=== PATIENT | female | born 1970 | race Caucasian/White ===

== ENCOUNTER 2017-09-14 16:46 | Inpatient (IN) | payer BC, MEDICAID ==
[2017-09-14] MEDS ORDERED: Ertapenem 1 GM in Sodium Chloride 0.9% 50 ML IV ONE (17:20)
[2017-09-14] MEDS ORDERED: fentaNYL 100 MCG/2 ML SDV IV ONE (18:54)
[2017-09-14] MEDS ORDERED: Midazolam 1 MG/ML 2 ML SDV IV ONE (18:54)
[2017-09-14] MEDS ORDERED: Lactated Ringers 1,000 ML IV ONE (18:54)
[2017-09-14] MEDS ORDERED: Propofol 200 MG/20 ML SDV IV ONE (18:54)
[2017-09-14] MEDS ORDERED: Lidocaine 1% 20 ML MDV INJECT ONE (19:12)
[2017-09-14] MEDS ORDERED: Bupivacaine 0.5% 30 ML SDV INJECT ONE (19:12)
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
[2017-09-14] MEDS ORDERED: Morphine 2 MG/ML Syringe IVPUSH PRN (20:29)
[2017-09-14] MEDS ORDERED: Bimatoprost 0.01% Ophth Soln 5 ML Bottle EYEBOTH SCH (21:00)
[2017-09-15] MEDS: Latanoprost 0.005% Ophth Soln 2.5 ML Bottle EYEBOTH SCH ×2 (00:34→20:28)
[2017-09-15] MEDS: Lactated Ringers 1,000 ML IV SCH ×2 (00:36→08:50)
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
[2017-09-15] MEDS ORDERED: metFORMIN 500 MG Tab.ER PO SCH (08:00)
[2017-09-15] MEDS: Hydrochlorothiazide/Lisinopril 12.5-20 MG Tab PO SCH (08:47)
[2017-09-15] MEDS: Levofloxacin 500 MG Tab PO SCH (08:47)
[2017-09-15] MEDS: metroNIDAZOLE 500 MG Tab PO SCH ×2 (08:47→15:25)
[2017-09-15] MEDS: metFORMIN 500 MG Tab PO SCH ×2 (08:48→18:32)
[2017-09-15] MEDS: Metoprolol Succinate 50 MG Tab.ER PO SCH (08:48)
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
[2017-09-15] MEDS: Sodium Chloride 0.9% 10 ML Syringe FLUSH PRN (14:31)
[2017-09-15] MEDS ORDERED: Bimatoprost 0.01% Ophth Soln 5 ML Bottle EYEBOTH SCH (21:00)
[2017-09-16] MEDS: metroNIDAZOLE 500 MG Tab PO SCH ×4 (01:01→23:42)
[2017-09-16] MEDS: Levofloxacin 500 MG Tab PO SCH (06:44)
[2017-09-16] MEDS: Sodium Chloride 0.9% 10 ML Syringe FLUSH PRN (08:48)
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
[2017-09-16] MEDS: Hydrochlorothiazide/Lisinopril 12.5-20 MG Tab PO SCH (09:13)
[2017-09-16] MEDS: metFORMIN 500 MG Tab PO SCH ×2 (09:13→19:35)
[2017-09-16] MEDS: Metoprolol Succinate 50 MG Tab.ER PO SCH (09:14)
[2017-09-16] MEDS: Latanoprost 0.005% Ophth Soln 2.5 ML Bottle EYEBOTH SCH (20:13)
[2017-09-17] MEDS: metroNIDAZOLE 500 MG Tab PO SCH (06:51)
[2017-09-17] MEDS: Levofloxacin 500 MG Tab PO SCH (06:51)
[2017-09-17] MEDS: metFORMIN 500 MG Tab PO SCH (07:51)
[2017-09-17] MEDS: Metoprolol Succinate 50 MG Tab.ER PO SCH (08:35)
[2017-09-17] MEDS: Hydrochlorothiazide/Lisinopril 12.5-20 MG Tab PO SCH (08:35)
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
== END 2017-09-17 10:30 | disposition home or self-care (01) | DRG 934 ==
LOC: FB.MS 17:15
PROVIDERS: ADMIT Surgery; ATTEND Surgery
PROC: 0Y6T0Z2 Detachment at Right 3rd Toe, Mid, Open Approach (ICD-10-PCS; principal; 2017-09-14)
PROC: 0Y6V0Z2 Detachment at Right 4th Toe, Mid, Open Approach (ICD-10-PCS; 2017-09-14)
DX: T25.331A Burn of third degree of right toe(s) (nail), initial encounter (principal); T31.0 Burns involving less than 10% of body surface; W29.2XXA Contact with other powered household machinery, initial encounter; Y93.9 Activity, unspecified; E11.9 Type 2 diabetes mellitus without complications; F17.200 Nicotine dependence, unspecified, uncomplicated; Z79.84 Long term (current) use of oral hypoglycemic drugs; I10 Essential (primary) hypertension
CPT/HCPCS: 36415; 80048; 81025; 85025; 88305; 88311; 94150; A9270-GY; J1335; J2250; J2270; J2704; J3010; J7050; J7120